=== PATIENT | female | born 1995 | race Two or more races ===

== ENCOUNTER → 2017-09-19 15:19 | Outpatient (CLI) | payer OTHER ==
[~2017-09-19 15:19] MED LIST: CATAFLAM50 MG PO; INTESTINEX680 MG PO; LEVSIN/SL0.125 MG PO; NEXIUM2.5 MG; PRILOSEC40 MG PO; PROTONIX40 MG PO; ZANTAC300 MG PO
== END | disposition home or self-care (01) ==
LOC: PPHC 14:00 → NUTRICION 15:19
DX: K29.70 Gastritis, unspecified, without bleeding (principal); K21.9 Gastro-esophageal reflux disease without esophagitis; K44.9 Diaphragmatic hernia without obstruction or gangrene; E66.3 Overweight

== ENCOUNTER 2017-10-02 15:29 | Outpatient (CLI) | payer OTHER | END 2017-10-02 15:33 | disposition home or self-care (01) | LOC: LAB 15:29 | DX: N39.0 Urinary tract infection, site not specified (principal); R82.79 Other abnormal findings on microbiological examination of urine ==

== ENCOUNTER → 2017-10-03 | Outpatient (CLI) | payer OTHER | END | disposition home or self-care (01) | LOC: MAMO-SONO 11:45 → SONOGRAMA 12:19 | DX: N83.292 Other ovarian cyst, left side (principal) ==

== ENCOUNTER 2018-04-02 16:55 | Outpatient (CLI) | payer OTHER | END 2018-04-02 16:57 | disposition home or self-care (01) | LOC: LAB 16:55 | DX: I95.89 Other hypotension (principal); Z13.1 Encounter for screening for diabetes mellitus; Z11.3 Encounter for screening for infections with a predominantly sexual mode of transmission; M54.2 Cervicalgia ==

== ENCOUNTER → 2018-05-08 14:36 | Outpatient (CLI) | payer OTHER | END | disposition home or self-care (01) | LOC: LAB 14:36 | DX: J45.21 Mild intermittent asthma with (acute) exacerbation (principal); J00 Acute nasopharyngitis [common cold]; J11.1 Influenza due to unidentified influenza virus with other respiratory manifestations; Z00.01 Encounter for general adult medical examination with abnormal findings ==

== ENCOUNTER 2018-09-24 13:42 | Outpatient (CLI) | payer OTHER | END 2018-09-24 13:51 | disposition home or self-care (01) | LOC: LAB 13:42 | DX: Z11.59 Encounter for screening for other viral diseases (principal) ==

== ENCOUNTER 2018-10-17 11:05 | Outpatient (CLI) | payer OTHER | END 2018-10-17 11:14 | disposition home or self-care (01) | LOC: LAB 11:05 | DX: D50.8 Other iron deficiency anemias (principal); E83.51 Hypocalcemia; N91.3 Primary oligomenorrhea; Z32.00 Encounter for pregnancy test, result unknown ==

== ENCOUNTER 2018-10-22 11:17 | Outpatient (CLI) | payer OTHER | END 2018-10-22 11:19 | disposition home or self-care (01) | LOC: SONOGRAMA 11:17 | DX: R10.2 Pelvic and perineal pain (principal) ==

== ENCOUNTER 2019-01-25 16:01 | Outpatient (CLI) | payer OTHER | END 2019-01-25 16:10 | disposition home or self-care (01) | LOC: LAB 16:01 | DX: J11.1 Influenza due to unidentified influenza virus with other respiratory manifestations (principal); J11.89 Influenza due to unidentified influenza virus with other manifestations ==

== ENCOUNTER 2019-06-06 16:00 | Outpatient (CLI) | payer OTHER | END 2019-06-06 16:30 | disposition home or self-care (01) | LOC: RAD 16:00 | DX: G44.309 Post-traumatic headache, unspecified, not intractable (principal) ==

== ENCOUNTER 2019-10-15 08:59 | Outpatient (CLI) | payer OTHER | END 2019-10-15 09:04 | disposition home or self-care (01) | LOC: LAB 08:59 | DX: J11.1 Influenza due to unidentified influenza virus with other respiratory manifestations (principal) ==

== ENCOUNTER 2020-03-21 07:10 | Emergency (ER) | payer OTHER ==
[~2020-03-21] VITALS: Ht 157.5 cm; Wt 67.6 kg
== END 2020-03-21 13:36 | disposition home or self-care (01) ==
LOC: ER 07:10
DX: B34.9 Viral infection, unspecified (principal); Z03.818 Encounter for observation for suspected exposure to other biological agents ruled out; R06.02 Shortness of breath; R51 Headache

== ENCOUNTER → 2020-05-21 | Outpatient (CLI) | payer OTHER | END | disposition home or self-care (01) | LOC: PPH VACUNA 10:00 | DX: Z23 Encounter for immunization (principal) ==

== ENCOUNTER 2020-11-06 10:07 | Outpatient (CLI) | payer OTHER | END 2020-11-06 10:15 | disposition home or self-care (01) | LOC: MRI 10:07 | PROVIDERS: ATTEND Internal Medicine | DX: R51.9 Headache, unspecified (principal) | CPT/HCPCS: 70551 ==

== ENCOUNTER 2020-12-28 14:35 | Outpatient (CLI) | payer OTHER | END 2020-12-28 15:15 | disposition home or self-care (01) | LOC: OFIC 805 14:35 | PROVIDERS: ATTEND Otolaryngology Otology & Neurotology | DX: R42 Dizziness and giddiness (principal); R26.89 Other abnormalities of gait and mobility ==

== ENCOUNTER 2021-02-13 15:19 | Emergency (ER) | payer OTHER ==
[~2021-02-13] VITALS: Ht 157.5 cm; Wt 66.7 kg
[2021-02-13] MEDS ORDERED: ZOFRAN8 MG (15:39)
[2021-02-13] MEDS ORDERED: PEPCID AC20 MG (15:40)
== END 2021-02-13 18:27 | disposition home or self-care (01) ==
LOC: ER 15:19
DX: R07.89 Other chest pain (principal)

== ENCOUNTER 2021-03-02 18:17 | Emergency (ER) | payer OTHER ==
[~2021-03-02] VITALS: Ht 157.5 cm; Wt 65.3 kg
[~2021-03-02 18:17] MED LIST changes: +PEPCID AC20 MG; +ZOFRAN8 MG
== END 2021-03-02 22:58 | disposition home or self-care (01) ==
LOC: ER 18:17
DX: O26.892 Other specified pregnancy related conditions, second trimester (principal); J11.1 Influenza due to unidentified influenza virus with other respiratory manifestations; J32.8 Other chronic sinusitis; Z11.52 Encounter for screening for COVID-19; Z34.02 Encounter for supervision of normal first pregnancy, second trimester

== ENCOUNTER 2021-04-13 06:46 | Outpatient (CLI) | payer OTHER | END 2021-04-13 15:00 | disposition home or self-care (01) | LOC: LAB 06:46 | PROVIDERS: ATTEND Emergency Medicine Pediatric Emergency Medicine | DX: Z03.818 Encounter for observation for suspected exposure to other biological agents ruled out (principal) ==

== ENCOUNTER 2021-04-20 07:13 | Outpatient (CLI) | payer OTHER | END 2021-04-20 15:00 | disposition home or self-care (01) | LOC: LAB 07:13 | PROVIDERS: ATTEND Emergency Medicine Pediatric Emergency Medicine | DX: Z03.818 Encounter for observation for suspected exposure to other biological agents ruled out (principal) ==

== ENCOUNTER 2021-04-28 08:57 | Outpatient (CLI) | payer OTHER | END 2021-04-28 08:58 | disposition home or self-care (01) | LOC: LAB 08:57 | PROVIDERS: ATTEND Obstetrics & Gynecology | DX: J15.1 Pneumonia due to Pseudomonas (principal); K71.0 Toxic liver disease with cholestasis; O09.72 Supervision of high risk pregnancy due to social problems, second trimester ==

== ENCOUNTER 2021-05-11 08:00 | Outpatient (CLI) | payer OTHER | END 2021-05-11 08:30 | disposition home or self-care (01) | LOC: PPH VACUNA 08:00 | PROVIDERS: ATTEND Emergency Medicine Pediatric Emergency Medicine | DX: Z23 Encounter for immunization (principal) ==

== ENCOUNTER 2021-05-14 09:21 | Outpatient (CLI) | payer OTHER | END 2021-05-14 10:13 | disposition home or self-care (01) | LOC: NST 09:21 | PROVIDERS: ATTEND Obstetrics & Gynecology | DX: Z34.83 Encounter for supervision of other normal pregnancy, third trimester (principal) ==

== ENCOUNTER 2021-05-18 15:04 | Outpatient (CLI) | payer OTHER | END 2021-05-18 15:16 | disposition home or self-care (01) | LOC: NST 15:04 | PROVIDERS: ATTEND Obstetrics & Gynecology | DX: Z34.83 Encounter for supervision of other normal pregnancy, third trimester (principal) ==

== ENCOUNTER 2021-05-21 10:06 | Outpatient (CLI) | payer OTHER | END 2021-05-21 11:02 | disposition home or self-care (01) | LOC: NST 10:06 | PROVIDERS: ATTEND Obstetrics & Gynecology | DX: Z34.83 Encounter for supervision of other normal pregnancy, third trimester (principal) ==

== ENCOUNTER 2021-05-28 07:27 | Outpatient (CLI) | payer OTHER | END 2021-05-28 07:55 | disposition home or self-care (01) | LOC: NST 07:27 | PROVIDERS: ATTEND Obstetrics & Gynecology Maternal & Fetal Medicine | DX: Z34.83 Encounter for supervision of other normal pregnancy, third trimester (principal) ==

== ENCOUNTER → 2021-06-01 11:05 | Outpatient (CLI) | payer OTHER ==
[~2021-06-01 11:05] MED LIST changes: -PRENATAL TABLE1 EAC1 PO; -URSO250 MG
== END | disposition home or self-care (01) ==
LOC: LAB 11:05
PROVIDERS: ATTEND Obstetrics & Gynecology Maternal & Fetal Medicine
DX: N30.00 Acute cystitis without hematuria (principal)

== ENCOUNTER → 2021-06-01 | Outpatient (CLI) | payer OTHER ==
[~2021-06-01] MED LIST changes: +PRENATAL TABLE1 EAC1 PO; +URSO250 MG
== END | disposition home or self-care (01) ==
LOC: PPH VACUNA 08:15
PROVIDERS: ATTEND Emergency Medicine Pediatric Emergency Medicine
DX: Z23 Encounter for immunization (principal)

== ENCOUNTER 2021-06-04 13:34 | Outpatient (CLI) | payer OTHER | END 2021-06-04 14:22 | disposition home or self-care (01) | LOC: NST 13:34 | PROVIDERS: ATTEND Obstetrics & Gynecology | DX: Z34.83 Encounter for supervision of other normal pregnancy, third trimester (principal) ==

== ENCOUNTER 2021-06-11 10:56 | Outpatient (CLI) | payer OTHER | END 2021-06-11 11:18 | disposition home or self-care (01) | LOC: NST 10:56 | PROVIDERS: ATTEND Obstetrics & Gynecology | DX: Z34.83 Encounter for supervision of other normal pregnancy, third trimester (principal) ==

== ENCOUNTER 2021-06-18 08:00 | Outpatient (CLI) | payer OTHER | END 2021-06-18 08:30 | disposition home or self-care (01) | LOC: PPH VACUNA 08:00 | PROVIDERS: ATTEND Emergency Medicine Pediatric Emergency Medicine | DX: Z23 Encounter for immunization (principal) ==

== ENCOUNTER 2021-06-25 10:36 | Outpatient (CLI) | payer OTHER | END 2021-06-25 11:06 | disposition home or self-care (01) | LOC: NST 10:36 | PROVIDERS: ATTEND Obstetrics & Gynecology | DX: Z34.83 Encounter for supervision of other normal pregnancy, third trimester (principal) ==

== ENCOUNTER 2021-07-05 12:58 | Outpatient (CLI) | payer OTHER | END 2021-07-05 13:29 | disposition home or self-care (01) | LOC: NST 12:58 | PROVIDERS: ATTEND Obstetrics & Gynecology | DX: Z34.83 Encounter for supervision of other normal pregnancy, third trimester (principal) ==

== ENCOUNTER 2021-07-07 07:16 | Inpatient (IN) | payer OTHER ==
[~2021-07-07] VITALS: Ht 165.1 cm; Wt 2.3 kg
[2021-07-07] MEDS ORDERED: PRENATAL TABLE1 EAC1 PO (07:26)
[2021-07-07] MEDS ORDERED: URSO250 MG (07:28)
== END 2021-07-09 17:14 | disposition home or self-care (01) | DRG 786 ==
LOC: LDR 07:16 → SURG-SUITE 21:25
PROVIDERS: ADMIT Obstetrics & Gynecology; ATTEND Obstetrics & Gynecology
PROC: 3E033VJ Introduction of Other Hormone into Peripheral Vein, Percutaneous Approach (ICD-10-PCS; 2021-07-07)
PROC: 4A1HXFZ Monitoring of Products of Conception, Cardiac Rhythm, External Approach (ICD-10-PCS; 2021-07-07)
PROC: 10D00Z1 Extraction of Products of Conception, Low, Open Approach (ICD-10-PCS; principal; 2021-07-07 18:30)
DX: O26.62 Liver and biliary tract disorders in childbirth (principal); K83.1 Obstruction of bile duct; O62.1 Secondary uterine inertia; O60.14X0 Preterm labor third trimester with preterm delivery third trimester, not applicable or unspecified; O61.0 Failed medical induction of labor; Z3A.36 36 weeks gestation of pregnancy; Z37.0 Single live birth

== ENCOUNTER 2021-11-04 08:00 | Outpatient (CLI) | payer OTHER ==
[~2021-11-04 08:00] MED LIST changes: +PRENATAL TABLE1 EAC1 PO; +URSO250 MG
== END 2021-11-04 08:30 | disposition home or self-care (01) ==
LOC: PPH VACUNA 08:00
PROVIDERS: ATTEND Emergency Medicine Pediatric Emergency Medicine
DX: Z23 Encounter for immunization (principal)

== ENCOUNTER 2022-02-12 10:06 | Outpatient (CLI) | payer OTHER | END 2022-02-12 10:13 | disposition home or self-care (01) | LOC: LAB 10:06 | DX: I11.9 Hypertensive heart disease without heart failure (principal); E11.65 Type 2 diabetes mellitus with hyperglycemia; E03.8 Other specified hypothyroidism; E55.9 Vitamin D deficiency, unspecified; E78.00 Pure hypercholesterolemia, unspecified ==

== ENCOUNTER 2022-06-28 11:00 | Outpatient (CLI) | payer OTHER | END 2022-06-28 11:05 | disposition home or self-care (01) | LOC: PPH VACUNA 11:00 | PROVIDERS: ATTEND Emergency Medicine Pediatric Emergency Medicine | DX: Z23 Encounter for immunization (principal) ==

== ENCOUNTER → 2022-09-28 10:41 | Outpatient (CLI) | payer OTHER | END | disposition home or self-care (01) | LOC: LAB 10:41 | PROVIDERS: ATTEND Obstetrics & Gynecology | DX: D50.9 Iron deficiency anemia, unspecified (principal); N39.0 Urinary tract infection, site not specified; R22.1 Localized swelling, mass and lump, neck; E55.9 Vitamin D deficiency, unspecified; E03.9 Hypothyroidism, unspecified ==

== ENCOUNTER → 2022-11-11 10:00 | Outpatient (CLI) | payer OTHER | END | disposition home or self-care (01) | LOC: LAB 10:00 | PROVIDERS: ATTEND Internal Medicine | DX: E55.9 Vitamin D deficiency, unspecified (principal); Z13.1 Encounter for screening for diabetes mellitus; Z13.220 Encounter for screening for lipoid disorders; Z13.29 Encounter for screening for other suspected endocrine disorder ==

== ENCOUNTER 2022-12-14 07:33 | Emergency (ER) | payer OTHER ==
[~2022-12-14] VITALS: Ht 157.5 cm; Wt 68.5 kg
== END 2022-12-14 10:53 | disposition home or self-care (01) ==
LOC: ER 07:33
DX: U07.1 COVID-19 (principal); Z88.8 Allergy status to other drugs, medicaments and biological substances; Z91.011 Allergy to milk products; Z91.013 Allergy to seafood

== ENCOUNTER → 2023-04-14 07:53 | Outpatient (CLI) | payer OTHER | END | disposition home or self-care (01) | LOC: LAB 07:53 | PROVIDERS: ATTEND Internal Medicine | DX: R51.9 Headache, unspecified (principal); M20.41 Other hammer toe(s) (acquired), right foot; E55.9 Vitamin D deficiency, unspecified; Z13.1 Encounter for screening for diabetes mellitus; Z13.29 Encounter for screening for other suspected endocrine disorder; Z13.220 Encounter for screening for lipoid disorders; M54.9 Dorsalgia, unspecified; M25.511 Pain in right shoulder ==

== ENCOUNTER → 2024-10-31 06:56 | Outpatient (CLI) | payer OTHER ==
[2024-10-31 07:48] LABS: HEMATOCRIT 40.8 % (36.0-45.00); HEMOGLOBIN 14.2 g/dL (12.0-15.00); MEAN CELL VOLUME 89.6 fL (80.00-100.00); MEAN CORPUSCULAR HEMOGLOBIN 31.2 pg (27.00-32.0); MEAN CORPUSCULAR HGB CONC 34.8 g/dl (32.0-36.0); PLATELET COUNT 414 K/uL (150-450); RED BLOOD COUNT 4.56 M/uL (4.00-6.00); RED CELL DISTRIBUTION WIDTH 14.2 % (11.5-14.5)
[2024-10-31 07:56] LABS: URINE APPEARANCE Clear; URINE BILIRRUBIN Negative (NEGATIVE); URINE BLOOD Negative; URINE COLOR Yellow; URINE GLUCOSE Negative (NEGATIVE); URINE KETONE Negative (NEGATIVE); URINE LEUKOCYTE Negative; URINE NITRATE Negative; URINE PROTEIN Negative (NEGATIVE); URINE UROBILINOGEN 0.2 E.U./dl
[2024-10-31 07:58] LABS: URINE BACTERIA 132.1 uL (0.0-1933); URINE EPITHELIAL CELLS 6.1 uL (0.0-38.8); URINE RBC 4.2 uL (0.0-20.8); URINE WBC 5.6 uL (0.0-23.2)
[2024-10-31 09:20] LABS: ALBUMIN 4.1 gm/dL (3.4-5.0); ALKALINE PHOSPHATASE 59 U/L (50-136); ALT/SGPT 24 U/L (12-78); ANION GAP 7 (10.0-20.0); AST/SGOT 15 U/L (15-37); BILIRUBIN TOTAL 0.75 mg/dL (0.3-1.2); BLOOD UREA NITROGEN 14 mg/dL (7-18); BUN CREA RATIO 20 (7.0-25.0); CALCIUM 9.3 mg/dL (8.5-10.1); CARBON DIOXIDE 29 mEq/L (21-32); CHLORIDE 107 mmol/L (98-107); CHOL HDL RATIO 2.9 (0-5.0); CHOLESTEROL 146 mg/dL (0-200); CREATININE SERUM 0.71 mg/dL (0.55-1.02); FREE TRIODOTIRONINE 2.95 pg/ml (2.18-3.98); GFR 96.66; GLOBULINA 3.5 G/DL (2.4-3.5); GLUCOSE FASTING 87 mg/dL (65-100); HDL 50 mg/dl (40-60); LDL 79 mg/dl (0-130); OSMOLALITY SERUM 277 MOSM/KG (275-295); POTASSIUM 4.14 mEq/L (3.5-5.1); SODIUM 139 mmol/L (136-145); T4 TOTAL 10.96 UG/DL (4.8-13.9); TOTAL PROTEIN 7.6 gm/dL (6.4-8.2); TRIGLYCERIDES 85 mg/dL (0-150); VLDL 17 (0-39)
[2024-10-31 09:27] LABS: C-REACTIVE PROTEIN < 0.29 MG/DL (0.00-0.29)
== END | disposition home or self-care (01) ==
LOC: LAB 06:56
PROVIDERS: ATTEND Internal Medicine
DX: Z00.00 Encounter for general adult medical examination without abnormal findings (principal); Z13.29 Encounter for screening for other suspected endocrine disorder; Z13.220 Encounter for screening for lipoid disorders; Z13.1 Encounter for screening for diabetes mellitus; E55.9 Vitamin D deficiency, unspecified; M62.830 Muscle spasm of back; N39.0 Urinary tract infection, site not specified; R22.1 Localized swelling, mass and lump, neck; D50.9 Iron deficiency anemia, unspecified; E03.9 Hypothyroidism, unspecified

== ENCOUNTER 2024-12-11 11:24 | Outpatient (CLI) | payer OTHER ==
[2024-12-11 11:43] LABS: HEMATOCRIT 41.4 % (36.0-45.00); HEMOGLOBIN 14.4 g/dL (12.0-15.00); MEAN CELL VOLUME 88.8 fL (80.00-100.00); MEAN CORPUSCULAR HGB CONC 34.9 g/dl (32.0-36.0); PLATELET COUNT 395 K/uL (150-450); RED BLOOD COUNT 4.66 M/uL (4.00-6.00)
[2024-12-11 12:27] LABS: MYCOPLASMA PNEUMONIAE IGM NON REACTIVE (NO REACTIVE)
== END 2024-12-11 14:38 | disposition home or self-care (01) ==
LOC: LAB 11:24
DX: J06.9 Acute upper respiratory infection, unspecified (principal)

== ENCOUNTER 2025-03-05 10:36 | Outpatient (CLI) | payer OTHER ==
[2025-03-05 11:19] LABS: BASO % 0.3 % (0.1-1.2); EOS # 0.05 (0.04-0.54); EOS % 0.4 % (0.7-7.0); LYMPH # 1.63 (1.18-3.74); LYMPH % 14.2 % (19.3-53.1); MEAN PLATELET VOLUME 10.20 fl (9.4-12.4); MONO # 0.59 (0.24-0.82); MONO % 5.1 % (4.7-12.5); NEUT # 9.12 (1.56-6.13); NEUT % 79.6 % (34.0-71.1); RED CELL DISTRIBUTION WIDTH 13.2 % (11.6-14.4)
[2025-03-05 11:40] LABS: ERYTHROCYTE SEDIMENTATION RATE 2 mm/hr (0-20)
[2025-03-05 12:12] LABS: BUN CREA RATIO 15 (7.0-25.0); CREATININE SERUM 0.71 mg/dL (0.55-1.02); GFR 96.66; GLUCOSE FASTING 89 mg/dL (65-100); OSMOLALITY SERUM 275 MOSM/KG (275-295)
== END 2025-03-05 10:42 | disposition home or self-care (01) ==
LOC: LAB 10:36
PROVIDERS: ATTEND Internal Medicine
DX: L03.116 Cellulitis of left lower limb (principal)

== ENCOUNTER 2025-06-18 10:00 | Outpatient (CLI) | payer OTHER | END 2025-06-18 10:10 | disposition home or self-care (01) | LOC: PPH VACUNA 10:00 | PROVIDERS: ATTEND Emergency Medicine Pediatric Emergency Medicine | DX: Z23 Encounter for immunization (principal) ==

== ENCOUNTER 2025-08-14 08:38 | Outpatient (CLI) | payer OTHER ==
[2025-08-14 09:43] LABS: BASO % 0.4 % (0.1-1.2); EOS # 0.06 (0.04-0.54); EOS % 0.7 % (0.7-7.0); LYMPH # 1.40 (1.18-3.74); LYMPH % 17.4 % (19.3-53.1); MEAN PLATELET VOLUME 10.30 fl (9.4-12.4); MONO # 0.53 (0.24-0.82); MONO % 6.6 % (4.7-12.5); NEUT # 5.97 (1.56-6.13); NEUT % 74.4 % (34.0-71.1); RED CELL DISTRIBUTION WIDTH 13.1 % (11.6-14.4)
[2025-08-14 10:11] LABS: COVID-19 AG NEGATIVE (NEGATIVE)
[2025-08-14 10:54] LABS: ALT/SGPT 38.0 U/L (12-78); AST/SGOT 10.0 U/L (15-37); BILIRUBIN TOTAL 0.99 mg/dL (0.3-1.2); BUN CREA RATIO 17.0 (7.0-25.0); CREATININE SERUM 0.77 mg/dL (0.55-1.02); FREE TRIODOTIRONINE 2.59 pg/ml (2.18-3.98); GFR 87.43; GLOBULINA 3.4 G/DL (2.4-3.5); GLUCOSE FASTING 85.0 mg/dL (65-100); OSMOLALITY SERUM 281.0 MOSM/KG (275-295); T4 FREE 1.15 NG/ML (0.76-1.46); TSH 1.21 uIU/mL (0.358-3.74)
[2025-08-14 12:55] LABS: MYCOPLASMA PNEUMONIAE IGM NON REACTIVE (NO REACTIVE)
== END 2025-08-14 09:31 | disposition home or self-care (01) ==
LOC: LAB 08:38
PROVIDERS: ATTEND Internal Medicine
DX: J11.1 Influenza due to unidentified influenza virus with other respiratory manifestations (principal); R50.9 Fever, unspecified; Z20.822 Contact with and (suspected) exposure to COVID-19; U07.1 COVID-19